=== PATIENT | male | born 1990 | race Caucasian/White ===

== ENCOUNTER 2019-01-04 15:59 | Outpatient (CLI) ==
[2016-04-07 16:02] VITALS: BMI 22.4
== END 2019-01-04 16:00 | disposition home or self-care (01) ==
LOC: RHC-LAB 15:59 → FCC-LAB 16:00
PROVIDERS: ATTEND Family Medicine
DX: E55.9 Vitamin D deficiency, unspecified (principal); F19.10 Other psychoactive substance abuse, uncomplicated; F29 Unspecified psychosis not due to a substance or known physiological condition; F12.10 Cannabis abuse, uncomplicated; F14.10 Cocaine abuse, uncomplicated; Z11.3 Encounter for screening for infections with a predominantly sexual mode of transmission; F15.10 Other stimulant abuse, uncomplicated
CPT/HCPCS: 36415; 80053; 82306; 85025; 86592; 86704; 86705; 86706; 86803; 87340; 87389